=== PATIENT | female | born 1985 | race Two or more races ===

== ENCOUNTER 2018-05-02 21:46 | Outpatient (CLI) | payer OTHER ==
[2018-05-02] MEDS ORDERED: OBSTETRIX EC C1 EACH PO (22:22)
== END 2018-05-03 10:14 | disposition home or self-care (01) ==
LOC: OBS/DEL 21:46
DX: O26.892 Other specified pregnancy related conditions, second trimester (principal); K29.70 Gastritis, unspecified, without bleeding; O60.02 Preterm labor without delivery, second trimester; Z34.82 Encounter for supervision of other normal pregnancy, second trimester

== ENCOUNTER 2018-07-31 11:00 | Inpatient (IN) | payer OTHER ==
[~2018-07-31] VITALS: Ht 195.6 cm; Wt 77.1 kg
[~2018-07-31 11:00] MED LIST: OBSTETRIX EC C1 EACH PO
== END 2018-09-02 13:17 | disposition home or self-care, planned readmission (81) | DRG 807 ==
LOC: OB/GYN 08-27 11:00 → LDR 08-31 07:28 → OB/GYN 08-31 07:28
PROC: 10E0XZZ Delivery of Products of Conception, External Approach (ICD-10-PCS; principal; 2018-08-31)
PROC: 0W8NXZZ Division of Female Perineum, External Approach (ICD-10-PCS; 2018-08-31)
PROC: 3E033VJ Introduction of Other Hormone into Peripheral Vein, Percutaneous Approach (ICD-10-PCS; 2018-08-31)
PROC: 4A1HXCZ Monitoring of Products of Conception, Cardiac Rate, External Approach (ICD-10-PCS; 2018-08-31)
DX: O80 Encounter for full-term uncomplicated delivery (principal); Z37.0 Single live birth; Z3A.40 40 weeks gestation of pregnancy

== ENCOUNTER → 2018-08-05 | Outpatient (CLI) | payer OTHER | END | disposition home or self-care (01) | LOC: NST 20:24 | DX: Z34.83 Encounter for supervision of other normal pregnancy, third trimester (principal) ==

== ENCOUNTER 2018-08-21 13:21 | Outpatient (CLI) | payer OTHER | END 2018-08-21 14:48 | disposition home or self-care (01) | LOC: NST 13:21 | DX: Z34.83 Encounter for supervision of other normal pregnancy, third trimester (principal) ==

== ENCOUNTER 2018-08-26 09:24 | Outpatient (CLI) | payer OTHER | END 2018-08-26 11:13 | disposition home or self-care (01) | LOC: NST 09:24 | DX: Z34.83 Encounter for supervision of other normal pregnancy, third trimester (principal) ==

== ENCOUNTER 2021-03-15 13:00 | Inpatient (IN) | payer OTHER ==
[~2021-03-15] VITALS: Ht 167.6 cm; Wt 73.5 kg
== END 2021-03-30 10:29 | disposition home or self-care (01) | DRG 807 ==
LOC: OB/GYN 03-28 07:51 → LDR 03-28 07:51 → OB/GYN 03-28 11:21
PROVIDERS: ADMIT Obstetrics & Gynecology; ATTEND Obstetrics & Gynecology
PROC: 10E0XZZ Delivery of Products of Conception, External Approach (ICD-10-PCS; principal; 2021-03-28)
PROC: 0UQG7ZZ Repair Vagina, Via Natural or Artificial Opening (ICD-10-PCS; 2021-03-28)
PROC: 10907ZC Drainage of Amniotic Fluid, Therapeutic from Products of Conception, Via Natural or Artificial Opening (ICD-10-PCS; 2021-03-28)
PROC: 4A1HXFZ Monitoring of Products of Conception, Cardiac Rhythm, External Approach (ICD-10-PCS; 2021-03-28)
DX: O71.89 Other specified obstetric trauma (principal); Z37.0 Single live birth; O48.0 Post-term pregnancy; Z20.822 Contact with and (suspected) exposure to COVID-19; Z3A.40 40 weeks gestation of pregnancy

== ENCOUNTER 2021-03-25 09:37 | Outpatient (CLI) | payer OTHER | END 2021-03-25 10:29 | disposition home or self-care (01) | LOC: NST 09:37 | PROVIDERS: ATTEND Obstetrics & Gynecology | DX: Z34.83 Encounter for supervision of other normal pregnancy, third trimester (principal) ==